=== PATIENT | female | born 1985 | race Caucasian/White ===

== ENCOUNTER → 2020-06-05 11:41 | Outpatient (BNVA) | payer OTHER, SELFPAY | PROVIDERS: Visit Provider Advanced Practice Midwife | DX: Z32.02 Encounter for pregnancy test, result negative (principal) | CPT/HCPCS: 81025; 99211 ==

== ENCOUNTER → 2020-06-06 09:48 | Outpatient (BNVA) | payer OTHER, SELFPAY | PROVIDERS: PCP Internal Medicine; Visit Provider Advanced Practice Midwife | DX: Z30.09 Encounter for other general counseling and advice on contraception (principal); Z80.3 Family history of malignant neoplasm of breast | CPT/HCPCS: 99212 ==

== ENCOUNTER 2020-07-04 08:48 | Outpatient (REF) | payer OTHER, SELFPAY ==
[2020-07-05 12:54] LABS: BV Int Neg Control Negative (Negative); BV Int Pos Control Positive (Positive)
[2020-07-07 08:12] LABS: C. trachomatis RNA TMA NOT DETECTED (NOT DETECTED); N. gonorrhoeae RNA TMA NOT DETECTED (NOT DETECTED)
== END 2020-07-04 08:49 | disposition home or self-care (01) ==
LOC: HO.LAB 08:48
PROVIDERS: PCP Internal Medicine; Visit Provider Advanced Practice Midwife
DX: Z30.432 Encounter for removal of intrauterine contraceptive device (principal); Z30.430 Encounter for insertion of intrauterine contraceptive device; Z32.02 Encounter for pregnancy test, result negative
CPT/HCPCS: 58300; 58301; 81025; 87480; 87491; 87510; 87591; 87660; 99212; J7298

== ENCOUNTER 2020-09-02 12:55 | Outpatient (REF) | payer OTHER, SELFPAY ==
[2020-09-03 09:25] LABS: BV Int Neg Control Negative (Negative); BV Int Pos Control Positive (Positive)
[2020-09-04 20:37] LABS: C. trachomatis RNA TMA NOT DETECTED (NOT DETECTED); N. gonorrhoeae RNA TMA NOT DETECTED (NOT DETECTED)
[2020-09-05 11:42] LABS: HPV mRNA E6/E7 rflx Not Detected (Not Detected)
== END 2020-09-02 12:56 | disposition home or self-care (01) ==
LOC: HO.LAB 12:55
PROVIDERS: Visit Provider Advanced Practice Midwife
DX: Z01.419 Encounter for gynecological examination (general) (routine) without abnormal findings (principal); Z11.51 Encounter for screening for human papillomavirus (HPV)
CPT/HCPCS: 36415; 87480; 87491; 87510; 87591; 87624; 87660; 88141; 88142

== ENCOUNTER 2021-01-28 14:24 | Outpatient (REF) | payer OTHER, SELFPAY ==
--- NOTE | ~2021-01-28 | XR_ITS ---
EXAMINATION: XR ANKLE, RIGHT CLINICAL INFORMATION: Unspecified injury right ankle with pain COMPARISON: . TECHNIQUE: AP, lateral, and mortise views of the right ankle. FINDINGS: There is no visible acute fracture, dislocation or subluxation seen. A small calcaneal heel enthesophyte is seen. The ankle mortise and subtalar joints are normal. XR/XR ankle RT min 3V IMPRESSION: Small calcaneal heel enthesophyte right ankle 01/28/2021
== END 2021-01-28 14:25 | disposition home or self-care (01) ==
LOC: HO.HMGCX 14:24
PROVIDERS: PCP Internal Medicine; Visit Provider Nurse Practitioner Family
DX: S99.911A Unspecified injury of right ankle, initial encounter (principal)
CPT/HCPCS: 73610

== ENCOUNTER 2021-06-18 10:43 | Outpatient (REF) | payer OTHER, SELFPAY ==
[2021-06-18 12:03] LABS: COVID-19 Test Positive (Negative); IDNOW Serial# 16C4AD1C
== END 2021-06-18 10:44 | disposition home or self-care (01) ==
LOC: HO.LAB 10:43
PROVIDERS: Visit Provider Internal Medicine
DX: Z20.822 Contact with and (suspected) exposure to COVID-19 (principal)
CPT/HCPCS: 36415; 87635; C9803

== ENCOUNTER 2021-08-11 11:06 | Outpatient (REF) | payer OTHER, SELFPAY ==
--- NOTE | ~2021-08-11 | XR_ITS ---
EXAMINATION: XR ELBOW, LEFT CLINICAL INFORMATION: Contusion left elbow. COMPARISON: None TECHNIQUE: AP, lateral, and oblique views of the left elbow. FINDINGS: The bones and soft tissues are normal. No fracture or joint effusion. Alignment is anatomic. Joint spaces are maintained. XR/XR elbow LT min 3V IMPRESSION: Normal left elbow.
== END 2021-08-11 11:07 | disposition home or self-care (01) ==
LOC: HO.HMGCX 11:06
PROVIDERS: Visit Provider Internal Medicine
DX: S50.02XA Contusion of left elbow, initial encounter (principal); X58.XXXA Exposure to other specified factors, initial encounter; Y93.9 Activity, unspecified; Y92.9 Unspecified place or not applicable; Y99.8 Other external cause status
CPT/HCPCS: 73080

== ENCOUNTER 2022-10-13 19:09 | Emergency (ER) | payer OTHER, SELFPAY ==
--- NOTE | ~2022-10-13 | XR_ITS ---
EXAMINATION: XR KNEE, LEFT CLINICAL INFORMATION: Fall COMPARISON: None available. TECHNIQUE: Four views of the left knee. FINDINGS: Bones and soft tissues are normal. No fracture or joint effusion. Alignment is anatomic. Joint spaces are well maintained. No abnormal soft tissue calcification. XR/XR knee LT 3V IMPRESSION: Normal left knee.
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
[2022-10-13 19:59] VITALS: BP 138/78; PULSE 101; RESP 18; TEMP 36.7; O2SAT 98; BMI 39.1
[2022-10-14 01:03] VITALS: BP 116/72; PULSE 75; RESP 18; TEMP 36.7; O2SAT 98
[2022-10-14] MEDS: Bacitracin Oint 0.9 GM PACKET 1 APPL TOPICAL (02:10)
[2022-10-14] MEDS: Acetaminophen 325 MG TABLET 975 MG PO (02:10)
[2022-10-14] MEDS: Ibuprofen 400 MG TABLET PO (02:11)
== END 2022-10-14 02:21 | disposition home or self-care (01) ==
PROVIDERS: Emergency Provider Student in an Organized Health Care Education/Training Program; PCP Internal Medicine
DX: S05.12XA Contusion of eyeball and orbital tissues, left eye, initial encounter (principal); S80.02XA Contusion of left knee, initial encounter; S40.022A Contusion of left upper arm, initial encounter; W19.XXXA Unspecified fall, initial encounter; Y93.89 Activity, other specified; Y92.89 Other specified places as the place of occurrence of the external cause; Y99.9 Unspecified external cause status; M54.2 Cervicalgia; R51.9 Headache, unspecified
CPT/HCPCS: 70450; 70486; 72125; 73562; 99283; 99284

== ENCOUNTER 2022-12-11 19:40 | Emergency (ER) | payer OTHER, SELFPAY ==
--- NOTE | ~2022-12-11 | XR_ITS ---
EXAMINATION: XR ANKLE, LEFT CLINICAL INFORMATION: Swelling COMPARISON: None available. TECHNIQUE: AP, lateral, and mortise views of the left ankle. FINDINGS: There is no fracture or dislocation. Ankle mortise is congruent. Lateral soft tissue swelling. There may be an ankle joint effusion as well. XR/XR ankle LT min 3V IMPRESSION: Lateral soft tissue swelling with possible ankle joint effusion. No fracture or malalignment.
[2022-12-11 20:46] VITALS: BP 138/115; PULSE 84; RESP 16; TEMP 36.3; O2SAT 98; BMI 35.2
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
== END 2022-12-11 22:53 | disposition home or self-care (01) ==
LOC: HO.ED 22:51
PROVIDERS: Emergency Provider Emergency Medicine; PCP Internal Medicine
DX: R60.0 Localized edema (principal); M25.572 Pain in left ankle and joints of left foot
CPT/HCPCS: 73610; 99282; 99283

== ENCOUNTER → 2023-01-07 09:02 | Outpatient (BNVA) | payer OTHER, SELFPAY | PROVIDERS: PCP Internal Medicine; Visit Provider Physician Assistant | DX: S93.402A Sprain of unspecified ligament of left ankle, initial encounter (principal) | CPT/HCPCS: 99202 ==

== ENCOUNTER 2023-03-29 12:00 | Outpatient (RCR) | payer OTHER, SELFPAY ==
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
--- NOTE | 2023-04-13 16:44 | MHC.PT.DC ---
[facility] [place] Office [place] Office [place] Office [address] Armand Cervantes [address] [phone] F: [phone] F: [phone] F: [phone] F: [phone] Physical Therapy Discharge Report Diagnosis: Sprain of unspecified ligament of left ankle, initial encounter Date of Surgery: N/A Date of Evaluation: 01/27/23 Date of Discharge: 04/13/23 Treatments to Date: 12 Cancellations to Date: No Shows to Date: 1 Discharge Status: Achieved Goals Improved Function Independent with HEP Discharge Summary: Pt was seen for PT from 01/27/23-03/29/23. Her last attended and scheduled appointment was 03/29/23. She made excellent progress since SOC. She improved her strength and stability throughout L ankle. She consistently had minimal to no pain and had little fluctuation of swelling to her L ankle. She is independent and compliant with HEP. She is being D/C from skilled PT. At her last attended appointment she was encouraged to continue strengthening to maintain the gains she made in PT Electronically signed by: Joan Jose, PT, DPT Please sign and return to therapist. Thank you for your referral.
== END 2023-04-13 16:44 | disposition home or self-care (01) ==
LOC: HO.PT 12:00
PROVIDERS: PCP Internal Medicine; Visit Provider Physician Assistant
DX: S93.402D Sprain of unspecified ligament of left ankle, subsequent encounter (principal)
CPT/HCPCS: 97110; 97112; 97140; 97161

== ENCOUNTER 2023-06-30 20:13 | Emergency (ER) | payer OTHER, SELFPAY ==
--- NOTE | ~2023-06-30 | XR_ITS ---
EXAMINATION: XR SHOULDER, RIGHT CLINICAL INFORMATION: Pain COMPARISON: None available. TECHNIQUE: AP external rotation, Grashey, scapular Y, and axillary views of the right shoulder. FINDINGS: The bones and soft tissues are normal. No fracture. Glenohumeral and acromioclavicular alignment is anatomic with normal joint space. No abnormal soft tissue calcifications. XR/XR shoulder RT min 2V IMPRESSION: Normal right shoulder.
[2023-06-30 20:18] VITALS: BP 123/38; PULSE 82; RESP 18; TEMP 36.9; O2SAT 100; BMI 33.7
--- NOTE | 2023-06-30 20:18 | ED_ITS ---
HPI - Extremity Injury (Upper) General Chief Complaint: Extremity Injury, Upper Stated Complaint: Shoulder/neck pain Time Seen by Provider: 06/30/23 21:11 Source: patient Mode of arrival: ambulatory Limitations: no limitations History of Present Illness HPI narrative: Patient is a 37-year-old female who presents emergency department for evaluation of right shoulder pain x3 weeks predominantly to the midscapular region. Radiates in to the upper shoulder/lateral neck, right upper arm, forearm. She also states infrequent radiation to the right upper anterior chest, midclavicular region. She denies any obvious injury or fall. She states that she awoke this way a few weeks back and has progressively worsened. 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 She denies numbness tingling or cold sensation to the right upper extremity. Related Data Home Medications Medication Instructions Recorded Confirmed diphenhydramine HCl 25 mg tablet 25 mg PO BEDTIME 06/06/20 08/11/21 (Benadryl Allergy) levonorgestrel 21 mcg/24 hours (8 intrauterine 09/02/20 08/11/21 yrs) 52 mg intrauterine device (Mirena) Previous Rx's Medication Instructions Recorded metronidazole 0.75 % (37.5 mg/5 1 appful vaginal BEDTIME 5 days 09/06/20 gram) vaginal gel (Metrogel #70 grams Vaginal) ibuprofen 800 mg tablet 800 mg PO Q8H PRN pain 30 days #90 01/07/23 tabs cyclobenzaprine 10 mg tablet 10 mg PO TID PRN muscle spasm #20 06/30/23 tabs Allergies Allergy/AdvReac Type Severity Reaction Status Date / Time No Known Allergies Allergy Verified 01/07/23 09:13 Review of Systems Review of Systems: Yes all other systems are reviewed and are negative PMFSH Past Medical History Attestation statement: The following information was validated with the patient. 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 No acute distress.?Normal affect. Neck: Normal inspection.? Neck supple.??No midline cervical spine tenderness, step-offs, deformities CVS: Heart sounds normal. Normal heart rate and rhythm.? Pulses normal.?? Respiratory: No respiratory distress.? Lung sounds clear to auscultation bilaterally?? Abdomen: Soft and non-tender. Normoactive bowel sounds. Skin: Skin warm and dry.? Normal skin color.? ?? Extremities: No extremity edema.?TTP R trapezius/rhomboideus major muscle with spasming Neuro: Moves all extremities spontaneously. Sensation intact bilaterally. Ambulates with normal steady gait. Course Course Course Narrative: RME: 37 yo F w/no PMHx presenting to the ED c/o R shoulder and neck pain radiating to chest/RUE/forearm. Admits to jumping out of a truck in October w/injury but denies any more recent injury/fall or neck manipulation EKG, XRs ordered Full HPI, ROS and PE to be performed by primary ED provider. Medical Decision Making Medical Decision Making MDM Narrative: Patient is a 37-year-old female presents emergency department for evaluation of right scapular/shoulder pain as per HPI. At the time my examination she is overall well-appearing, nontoxic, afebrile. She does not have any associated GI symptoms, abdominal examination is benign, do not suspect pain to be referred secondary to acute biliary or hepatic etiology. There are no rashes or lesions. No traumatic injury. XR reveals no evidence of acute fracture or dislocation. She does have significant tenderness upon palpation to the musculature of this region. I suspect pain at this time 3 most secondary to muscular nature, she has had some improvement with stretching and ibuprofen. Advised acetamin ophen/ibuprofen, stretching exercises, ice/heat, a prescription for muscle relaxer present to patient's pharmacy. Reviewed worrisome signs and symptoms that would warrant re-evaluation emergency department. Outpatient follow-up with her primary care provider. All questions answered. Stable for discharge. Differential Diagnosis Differential Diagnoses: The differential diagnosis associated with the presentation includes (As noted above) Admission/Observation Consideration of admission/observation: Escalation of care including admission/observation considered (As noted above) Independent Interpretation I performed an independent interpretation of an: Plain X-Ray (I personally interpreted XR imaging and agree with radiologist impression.) Radiology Impression Discussion of test interpretation with radiology: I have reviewed the radiologist's reading. Radiologist Impression: XR/XR shoulder RT min 2V IMPRESSION: Normal right shoulder. External Record Review External record reviewed: Outpatient record Prescription Management I considered prescription management with: Pain Medication (As per narrative above) Discharge Plan Discharge Clinical Impression: Right shoulder strain Qualifiers: Encounter type: initial encounter Qualified Code(s): S46.911A - Strain of unspecified muscle, fascia and tendon at shoulder and upper arm level, right arm, initial encounter Patient Disposition: Home, Self-Care Instructions: Muscle Strain (ED) Additional Instructions: You can take ibuprofen 200 mg, 3 tablets (600mg) every 6-8 hours as needed for pain, in addition to Tylenol 500 mg, 2 tablets (1,000mg) every 4-6 hours as needed for pain, but not to exceed 3 doses daily (3,000mg).? I sent a prescription for Flexeril/cyclobenzaprine to your pharmacy. This is a muscle relaxer. This medication may make you drowsy. You should not drive, drink alcohol, or work while taking this medication. Please contact your primary care provider and arrange for a follow-up visit next week if you continue to have persistent symptoms. Return back to emergency department any new or worsening symptoms or concerns. Prescriptions: New cyclobenzaprine 10 mg tablet 10 mg PO TID PRN (Reason: muscle spasm) Qty: 20 0RF No Action metronidazole [Metrogel Vaginal] 0.75 % gel 1 appful vaginal BEDTIME 5 Days Qty: 70 0RF Rx Instructions: No Alcohol while on this medication. diphenhydramine HCl [Benadryl Allergy] 25 mg tablet 25 mg PO BEDTIME Mirena 20 mcg/24 hours (6 yrs) 52 mg intrauterine device intrauterine ibuprofen 800 mg tablet 800 mg PO Q8H PRN (Reason: pain) 30 Days Qty: 90 3RF Referrals: Bola Hauser MD [Primary Care Provider] -
--- NOTE | 2023-06-30 20:21 | ECG_ITS ---
Test Reason : CHST PAIN Blood Pressure : / mmHG Vent. Rate : 070 BPM Atrial Rate : 070 BPM P-R Int : 146 ms QRS Dur : 082 ms QT Int : 386 ms P-R-T Axes : 063 064 046 degrees QTc Int : 416 ms Sinus rhythm with Premature supraventricular complexes Otherwise normal ECG No previous ECGs available Referred By: Irais Petty Electronically Signed By:CHEN WORTHY
== END 2023-06-30 21:58 | disposition home or self-care (01) ==
PROVIDERS: Emergency Provider Student in an Organized Health Care Education/Training Program; PCP Internal Medicine
DX: S46.911A Strain of unspecified muscle, fascia and tendon at shoulder and upper arm level, right arm, initial encounter (principal); X58.XXXA Exposure to other specified factors, initial encounter; Y93.9 Activity, unspecified; Y92.9 Unspecified place or not applicable; Y99.9 Unspecified external cause status
CPT/HCPCS: 73030; 93005; 99283

== ENCOUNTER → 2023-06-30 20:21 | Outpatient (BNV) | payer OTHER, SELFPAY | PROVIDERS: Emergency Provider Student in an Organized Health Care Education/Training Program; PCP Internal Medicine; Visit Provider Internal Medicine | DX: R07.9 Chest pain, unspecified (principal) | CPT/HCPCS: 93010 ==

== ENCOUNTER 2023-09-29 12:42 | Outpatient (AMB) | payer OTHER, SELFPAY ==
[2023-09-29 13:08] VITALS: BP 124/74; PULSE 94; TEMP 37.1; O2SAT 99; BMI 32.8
--- NOTE | 2023-09-29 13:08 | AM.OFFWIN_ITS ---
Intake Vital Signs 09/29/23 13:08 Height 5 ft 7 in Weight 209 lb 2 oz BMI 32.8 BP 124/74 Blood Pressure Location Lt brachial Position Sitting Pulse 94 Pulse Source Pulse Oximeter Temp 98.8 F Temp Source Oral Pulse Oximetry (%) 99 Oxygen Delivery Method Room Air Intake Visit Reasons: EP ?Sinus Infection Intake Note: Pt presents to the office today for c/o sinus pressure and pressure behind her eyes. She states this started Wednesday09/26/23 Patient Tobacco Use Status: Never used Tobacco Allergies No Known Allergies Allergy (Verified 09/29/23 13:11) HPI HPI Comments History of Present Illness Details She presents to office with concern infection + ear pain, congestion, ST, post nasal d rip Onset Wednesday Used Afrin, saline wash, Claritin without relief Sudafed without relief Feels better than Wednesday No fevers or documented chills She said nephew + allergies but works in [employer] [facility] Medical History Tonsillitis Family History Maternal Grandmother Breast cancer Paternal Grandmother Stroke Maternal Grandfather Lung cancer Paternal Uncle Heart attack Father Heart disease Social History (Updated 09/29/23 @ 13:11 by Sofie Alan MA) Alcohol intake: current Alcohol intake frequency: a few times a week Patient Tobacco Use Status: Never used Tobacco e-Cigarette/Vaping Use: Currently Using Current occupational status: employed 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 Gender identity: Female Female Reproductive History Menstrual Age of Menarche: 15 Review of Systems Const Denies body aches, Denies chills, Denies fatigue, Denies fever(s) and Denies headache(s) ENT Denies dizziness, Reports otalgia, Denies headache(s), Reports nasal discharge, Reports sinus pressure, Reports sore throat and Denies throat swelling Card Denies chest pain and Denies dyspnea Resp Denies chest congestion, Denies cough and Denies dyspnea Neuro Denies dizziness and Denies headache(s) Endo Denies fatigue Aller/Immun Denies throat swelling Physical Exam Vital Signs: Last Vital Signs Temp 98.8 F 09/29/23 13:08 Pulse 94 09/29/23 13:08 BP 124/74 09/29/23 13:08 Pulse Ox 99 09/29/23 13:08 Oxygen Delivery Method Room Air 09/29/23 13:08 BMI result Body Mass Index 32.8 General: Non-toxic, NAD. Speaking full sentences. Skin: Warm dry throughout Eye: EOMI HENT: Airway patent. Uvula midline. No pharyngeal erythema or edema. No ENGLISH TUTOR. + rhinorrhea. No septal hematoma. No epistaxis Bilateral canals clear. TM non-erythematous, non-bulging. No TM perforation or hemotympanum noted. Respiratory: CTA bilaterally. No wheezes, rales or rhonchi Cardiac: RRR. No murmur MSK: Full ROM extremities. Neurology: A. No aphasia or facial droop. Gait without abnormality Psych: Good mood and affect Assessment & Plan Assessment & Plan (1) Viral sinusitis: Code(s): J32.9 - Chronic sinusitis, unspecified; B97.89 - Other viral agents as the cause of diseases classified elsewhere Plan: Patient seen and evaluated. Prednisone with food. Avoid nsaids or alcohol. D/C nasal spray when on this COVID test [employer] Patient gave verbal understanding and had no additional questions or concerns at time of discharge All questions answered Orders: Orders BinaxNOW Covid-19 Ag Today B97.89 - Other viral agents as the cause of diseases classified elsewhere, J32.9 - Chronic sinusitis, unspecified Medications: New prednisone 40 mg (2 x 20 mg) PO DAILY 8 tabs 0RF Coding Level of Care Code Est Pt Level 3 (04926) Diagnoses Viral sinusitis J32.9; B97.89
== END 2023-09-29 14:05 | disposition home or self-care (01) ==
PROVIDERS: PCP Internal Medicine; Visit Provider Physician Assistant
DX: J32.9 Chronic sinusitis, unspecified (principal); B97.89 Other viral agents as the cause of diseases classified elsewhere
CPT/HCPCS: 99213

== ENCOUNTER 2023-09-29 13:28 | Outpatient (REF) | payer OTHER, SELFPAY ==
[2023-09-29 13:57] LABS: Binax Internal Control QC Valid; Binax Now Covid-19 Ag Negative (Negative); Binax Performed by: HO.BONILM
== END 2023-09-29 13:29 | disposition home or self-care (01) ==
LOC: HO.HMGCLDS 13:28
PROVIDERS: PCP Internal Medicine; Visit Provider Physician Assistant
DX: J32.9 Chronic sinusitis, unspecified (principal); B97.89 Other viral agents as the cause of diseases classified elsewhere
CPT/HCPCS: 87811